=== PATIENT | male | born 2000 | race African-American/Black ===

== ENCOUNTER 2021-07-27 14:56 | Emergency (ER) | payer MEDICAID ==
[~2021-07-27] VITALS: Ht 177.8 cm; Wt 68.0 kg
[2021-07-27 15:04] VITALS: BP 158/88
--- NOTE | 2021-07-27 15:36 | NUR ---
PT BIBA, AMBULATED TO BED 11.
[2021-07-27] MEDS ORDERED: ONDA-24 SL (16:15)
--- NOTE | 2021-07-27 16:40 | NUR ---
PT ROAD TESTED AT 1640
--- NOTE | 2021-07-27 17:30 | NUR ---
IV removed, catheter intact and site benign. Applied folded 4x4 gauze and tape to stop bleeding.
[2021-07-27 17:34] VITALS: BP 139/80
--- NOTE | 2021-07-27 17:34 | NUR ---
Patient discharged with v/s stable. Written and verbal after care instructions given and explained. Patient alert, oriented and verbalized understanding of instructions. Ambulatory with steady gait. Pt provided with a taxi voucher. Pt states he was not able to get a ride home, mom and sister both unavailable. All questions addressed prior to discharge. ID band removed. Patient advised to follow up with PMD. Rx of Zofran odt given. Patient educated on indication of medication including possible reaction and side effects. Opportunity to ask questions provided and answered.
--- NOTE | 2021-07-27 17:45 | NUR ---
Pt given a sandwich meal and asked to wait in ER lobby for taxi.
== END 2021-07-27 17:34 | disposition home or self-care (01) ==
LOC: MED 14:56
DX: F41.9 Anxiety disorder, unspecified (principal); T40.7X5A Adverse effect of cannabis (derivatives), initial encounter; Y92.89 Other specified places as the place of occurrence of the external cause; J45.909 Unspecified asthma, uncomplicated; F17.210 Nicotine dependence, cigarettes, uncomplicated
CPT/HCPCS: 99283